=== PATIENT | male | born 1940 | race Caucasian/White ===

== ENCOUNTER 2017-04-10 10:36 | Emergency (ER) | payer MEDICARE ==
[2017-04-10 10:37] VITALS: BMI 25.0
--- NOTE | 2017-04-10 10:49 | ED PDOC ---
Arrival/HPI - General Time Seen by Provider: 04/10/17 10:39 Historian: Patient - History of Present Illness Narrative History of Present Illness (Text): 04/10/17 10:46 76yo male with PMhx of hyperlipdemia, gout and anemia present with left foot pain x 5days. Pain is over the lateral and medial malleolus and plantar surface. States he was taking Tylenol without relieve. He notes that the last time he had similar symptom he was treated for gout, in 2013. He denies trauma, calf pain, LE edema, SOB, diaphoresis, fever, and any other complaint. Past Medical History - Provider Review Nursing Documentation Reviewed: Yes - Past History Past History: No Previous - Tetanus Immunization Tetanus Immunization: Unknown - Cardiac Hx Hypertension: Yes - Hematological/Oncological Hx Blood Transfusions: Yes Hx Blood Transfusion Reaction: No - Musculoskeletal/Rheumatological Hx Gout: Yes - Psychiatric Hx Substance Use: No - Surgical History Hx Orthopedic Surgery: Yes (LEFT KNEE) - Anesthesia Hx Anesthesia Reactions: No Hx Malignant Hyperthermia: No - Suicidal Assessment Feels Threatened In Home Enviroment: No Family/Social History - Physician Review Nursing Documentation Reviewed: Yes Family/Social History: Unknown Family HX Smoking Status: Current Some Days Smoker Hx Alcohol Use: No Hx Substance Use: No Hx Substance Use Treatment: No Allergies/Home Meds Allergies/Adverse Reactions: Allergies No Known Allergies Allergy (Verified 04/10/17 10:49) Home Medications: Home Meds Medication Instructions Recorded Confirmed Simvastatin 10 mg PO DAILY 04/10/17 04/10/17 Review of Systems - Physician Review All systems were reviewed & negative as marked: Yes - Review of Systems Constitutional: Normal Eyes: Normal ENT: Normal Respiratory: Normal Cardiovascular: Normal Gastrointestinal: Normal Genitourinary Male: Normal Musculoskeletal: Arthralgias (LEft foot pain) Skin: Normal Neurological: Normal Endocrine: Normal Hemo/Lymphatic: Normal Psychiatric: Normal Physical Exam Vital Signs Reviewed: Yes Vital Signs Temp Pulse Resp BP Pulse Ox 04/10/17 10:45 97.9 F 97 H 17 147/79 97 Temperature: Afebrile Blood Pressure: Normal Pulse: Regular Respiratory Rate: Normal Appearance: Positive for: Well-Appearing, Non-Toxic, Comfortable Pain Distress: None Mental Status: Positive for: Alert and Oriented X 3 - Systems Exam Head: Present: Atraumatic, Normocephalic Pupils: Present: PERRL Extroacular Muscles: Present: EOMI Conjunctiva: Present: Normal Mouth: Present: Moist Mucous Membranes Neck: Present: Normal Range of Motion Respiratory/Chest: Present: Clear to Auscultation, Good Air Exchange. No: Respiratory Distress, Accessory Muscle Use Cardiovascular: Present: Regular Rate and Rhythm, Normal S1, S2. No: Murmurs Abdomen: Present: Normal Bowel Sounds. No: Tenderness, Distention, Peritoneal Signs Back: Present: Normal Inspection Upper Extremity: Present: Normal Inspection. No: Cyanosis, Edema Lower Extremity: Present: NORMAL PULSES, Normal ROM, Tenderness (Over the lateral malleolus), Swelling (Mild swelling over the left latearl malleolus), Erythema (Over the lateral malleolus), Neurovascularly Intact. No: Edema, CALF TENDERNESS, Temperature Abnormalties Neurological: Present: GCS=15, CN II-XII Intact, Speech Normal Skin: Present: Warm, Dry, Normal Color. No: Rashes Psychiatric: Present: Alert, Oriented x 3, Normal Insight, Normal Concentration Medical Decision Making ED Course and Treatment: 04/10/17 12:07 Pt presented for stated history. He was not in any distress. Afebrile and comfortable. Ambulatory with steady gait. Lab was unremarkable. Foot xray - no acute finding. Pt's pain improved on re evaluation with Toradol. He will however be DC home with Amoxicillin and indomethacin secondary to the erythema on PE. 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 Case was DW the pt. Pt is stable for discharge. Dr. Shafer will see pt in the office next week. - Lab Interpretations Lab Results: 04/10/17 11:15 04/10/17 11:15 Lab Results 04/10/17 11:15: Sodium 138, Potassium 4.2, Chloride 97 L, Carbon Dioxide 27, Anion Gap 18, BUN 18, Creatinine 1.0, Est GFR ( Amer) > 60, Est GFR (Non- Af Amer) > 60, Random Glucose 109, Uric Acid 4.8, Calcium 9.8, Total Bilirubin 0.9, AST 18, ALT 23, Alkaline Phosphatase 85, Total Protein 8.1, Albumin 4.3, Globulin 3.8, Albumin/Globulin Ratio 1.1 04/10/17 11:15: WBC 4.8, RBC 4.76, Hgb 14.9, Hct 43.4, MCV 91.2, MCH 31.3, MCHC 34.3, RDW 12.7, Plt Count 159, MPV 10.0, Gran % 70.5 H, Lymph % (Auto) 19.8 L, [place] % (Auto) 8.3 H, Eos % (Auto) 1.0 L, Baso % (Auto) 0.4, Gran # 3.39, Lymph # 1.0 L, [place] # 0.4, Eos # 0.1, Baso # 0.02 - RAD Interpretation Radiology Orders: 04/10/17 10:51 FOOT LEFT 3 VIEWS ROUTINE [RAD] Stat - Medication Orders Current Medication Orders: Discontinued Medications Ketorolac Tromethamine (Toradol) 30 mg IVP STAT STA Stop: 04/10/17 10:51 Last Admin: 04/10/17 11:15 Dose: 30 mg MAR Pain Assessment Document 04/10/17 11:15 EQ (Rec: 04/10/17 11:15 EQ [id number]) Pain Reassessment Is this a pain reassessment? No Sleep Is patient sleeping during reassessment? No Presence of Pain Presence of Pain Yes Pain Scale Used Pain Scale Used Numeric IVP Administration Document 04/10/17 11:15 EQ (Rec: 04/10/17 11:15 EQ [id number]) Charges for Administration # of IVP Administrations 1 Disposition/Present on Arrival - Present on Arrival Any Indicators Present on Arrival: No History of DVT/PE: No History of Uncontrolled Diabetes: No Urinary Catheter: No History Surgical Site Infection Following: None - Disposition Have Diagnosis and Disposition been Completed?: Yes Diagnosis: Foot pain Disposition: HOME/ ROUTINE Disposition Time: 12:10 Patient Plan: Discharge Condition: STABLE Discharge Instructions (ExitCare): Arthralgia (ED), Gout (ED) Additional Instructions: follow up with your doctor next week Return to ED for any new or worsening symptoms Prescriptions: Cephalexin [cephalexin] 500 mg PO TID #21 cap Indomethacin [Indocin] 50 mg PO BID #20 cap
[2017-04-10 10:54] VITALS: TEMP 97.9
[2017-04-10 11:22] LABS: BASO # 0.02 K/mm3 (0.0-2.0); BASO % 0.4 % (0.0-3.0); EOS # 0.1 (0.0-0.7); GRAN # 3.39 (1.4-6.5); GRAN % 70.5 % (50.0-68.0); HEMOGLOBIN 14.9 g/dL (14.0-18.0); LYMPH % 19.8 % (22.0-35.0); MEAN CELL VOLUME 91.2 fl (80.0-105.0); MEAN CORPUSCULAR HEMOGLOBIN 31.3 pg (25.0-35.0); MEAN CORPUSCULAR HGB CONC 34.3 g/dl (31.0-37.0); MONO # 0.4 (0.1-0.6); MONO % 8.3 % (1.0-6.0); RBC 4.76 10^6/uL (3.5-6.1); RED CELL DISTRIBUTION WIDTH 12.7 % (11.5-14.5); WHITE BLOOD COUNT 4.8 10^3/ul (4.5-11.0)
[2017-04-10 11:33] LABS: ALB/GLOB RATIO 1.1 (1.1-1.8); ALBUMIN 4.3 g/dL (3.0-4.8); ALT/SGPT 23 U/L (7-56); AST/SGOT 18 U/L (17-59); BLOOD UREA NITROGEN 18 mg/dL (7-21); CALCIUM 9.8 mg/dL (8.4-10.5); GFR AFRICAN-AMERICAN > 60; GFR NON-AFRICAN AMERICAN > 60; URIC ACID 4.8 mg/dL (3.5-8.5)
[2017-04-10 12:25] VITALS: PULSE 87; RESP 18; O2SAT 98
--- NOTE | 2017-04-10 12:27 | RAD ---
PROCEDURE: Left Foot Radiographs. HISTORY: foot pain COMPARISON: None. FINDINGS: BONES: Normal. No fracture. JOINTS: Normal. SOFT TISSUES: Normal. OTHER FINDINGS: None. IMPRESSION: Normal left foot radiographs.
[2017-04-10 12:40] VITALS: BP 117/74
== END 2017-04-10 12:40 | disposition home or self-care (01) ==
LOC: ED 10:36
DX: M79.672 Pain in left foot (principal); I10 Essential (primary) hypertension
CPT/HCPCS: 73630; 80053; 84550; 85025; 96374; 99284; J1885

== ENCOUNTER 2018-04-19 09:24 | Day surgery (SDC) | payer MEDICARE ==
[2018-04-19] MEDS ORDERED: Propofol 10 mg/ml Inj (20 ML) ONE (11:48)
[2018-04-19] MEDS ORDERED: Sodium Chloride 0.9% 1,000 ML IV SCH (12:30)
[2018-04-19 15:04] VITALS: BP 135/68; PULSE 54; RESP 16; TEMP 97.3; O2SAT 100
== END 2018-04-19 14:20 | disposition home or self-care (01) ==
LOC: ENDO 09:24
PROVIDERS: ATTEND Internal Medicine Gastroenterology
DX: K29.50 Unspecified chronic gastritis without bleeding (principal); K57.30 Diverticulosis of large intestine without perforation or abscess without bleeding; K64.8 Other hemorrhoids; D64.9 Anemia, unspecified
CPT/HCPCS: 43239; 45378; 88305; 88342; J2001; J2704; J3010; J7030; J7040